=== PATIENT | female | born 2000 | race African-American/Black ===

== ENCOUNTER 2025-03-02 21:06 | Inpatient (IN) | payer MEDICAID, OTHER ==
[2025-03-02] MEDS ORDERED: MAG HYDROX/AL HYDROX/SIMETH 355 ML BOTTLE PO PRN (22:38)
[2025-03-02] MEDS ORDERED: ACETAMINOPHEN TAB 325 MG TAB PO PRN (22:38)
[2025-03-02] MEDS ORDERED: IBUPROFEN 600 MG TAB PO PRN (22:38)
[2025-03-02] MEDS ORDERED: haloperidoL 5 MG TAB PO PRN (22:38)
[2025-03-02] MEDS ORDERED: LORazepam 1 MG/0.5 ML VIAL IM PRN (22:38)
[2025-03-02] MEDS ORDERED: MAGNESIUM HYDROXIDE 2,400 MG/30 ML CUP PO PRN (22:38)
[2025-03-02] MEDS ORDERED: HALOPERIDOL LACTATE 5 MG/ML 1 ML VIAL IM PRN (22:38)
[2025-03-02] MEDS ORDERED: LORazepam 2 MG/ML INJ IM PRN (22:55)
[2025-03-03] MEDS: diphenhydrAMINE 50 MG CAP PO PRN (00:14)
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
[2025-03-03] MEDS ORDERED: ALBUTEROL INHALER 60 PUFF/8 GM INHALER (MHU) INHALATION PRN (09:55)
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
[2025-03-03] MEDS: LORazepam 1 MG TAB PO PRN (10:43)
[2025-03-03] MEDS: ESCITALOPRAM 5 MG TAB PO SCH (10:43)
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
[2025-03-03 16:13] LABS: Chol/HDL Ratio 2.82 Ratio; VLDL Calculation 13.66 mg/dL (5.00-40.00)
[2025-03-03] MEDS: PETROLAT,WHITE/LAN/8-HYDROXYQU 227 GM OINT TOPICAL PRN (21:37)
--- NOTE | 2025-03-04 15:01 | P.PN ---
Subjective Progress Note Date: 03/04/25 Principal diagnosis: Major depression Probable ADHD possible bipolar Patient was seen in the [facility] and she came readily she was wearing a blanket over her head because she felt cold she said she was here because she was depressed but that in the past she was diagnosed with ADHD and think she does have that but she kind of likes it. "ADHD is my superpower" she was treated briefly for that but did not like the fact that it made her more depressed. She says she slept well last night and that yesterday the Lexapro bothers her stomach but today it is not. MENTAL STATUS EXAM: General Appearance: Patient appears to be stated age is alert, directable, and attempts to cooperate. Patient appears to have poor hygiene and grooming. Behavior: Patient is seated without any agitated behavior. She did become upset towards the end of interview, irritable and tearful. Minimizing her symptoms Speech: Patient's speech is fluent and nonpressured. Mood/Affect: Patient reports their mood is depressed, affect is congruent and labile Suicidality/Homicidality: Patient denies having any homicidal ideation intent or plan. Denies any suicidal ideations intent or plan Perceptions: Patient denies any visual hallucinations and denies any auditory hallucinations Though content/process: There is no evidence of any delusional thought content and thought process is linear and goal-directed. Memory and concentration: AOX3, grossly intact for the purposes of this session. Can spell "WORLD" backwards Judgment and insight: Poor STRENGTHS/WEAKNESSES: strength is that patient is resilient, goal oriented. Weakness is that patient has poor judgment/insight and is impulsive INTELLECT: Average IMPRESSIONS: Depression, unspecified Rule out MDD versus bipolar disorder, current episode depressed Social anxiety disorder Cannabis use disorder Rule out PTSD PLAN: -Patient is admitted under voluntary status to [facility] for stabilization of psychiatric symptoms and safety. Patient has signed adult voluntary form and and is placed in patient's chart. -Medications : Start Lexapro 5 mg daily for depression - Ativan and Haldol PRN for agitation/aggression -Patient was counselled on substance abuse and desired to cut back on use -Patient was informed of the risks, benefits and side effects of the medication and patient verbally consented to taking the medications. Patient signed med consent form and was placed in chart. Patient offered and accepted patient education sheet for psychotropic medications. -Internal Medicine consult to perform medical evaluation and physical. -NRT -not needed as patient does not smoke -SW on board for discharge planning. Encourage patient to participate in groups to work on coping skills. Anticipate discharge early next week Objective - Vital Signs Vital signs: Vital Signs Temp 93.2 F L 03/03/25 21:00 Pulse 108 H 03/04/25 09:29 Resp 18 03/04/25 09:29 BP 113/68 03/04/25 09:29 Pulse Ox 98 03/04/25 09:29 FiO2 - Labs Labs: Abnormal Lab Results - Last 24 Hours (Table) 03/03/25 Range/Units 06:30 HDL Cholesterol 66.30 H (40.00-60.00) mg/dL
--- NOTE | 2025-03-05 09:14 | P.PN ---
Subjective Progress Note Date: 03/05/25 Principal diagnosis: Major depression Probable ADHD possible bipolar Patient was seen in the [facility] and she came readily she was wearing a blanket over her head because she felt cold she said she was here because she was depressed but that in the past she was diagnosed with ADHD and think she does have that but she, "kind of likes it." "ADHD is my superpower" she was treated briefly for the ADHD. She says she slept well last night and that yesterday the Lexapro bothered her stomach but today it is not. MENTAL STATUS EXAM: General Appearance: Patient appears to be stated age is alert, directable, and attempts to cooperate. Patient appears to have poor hygiene and grooming. Behavior: Patient is seated without any agitated behavior. She seems more to need for help. Speech: Patient's speech is fluent and nonpressured. Mood/Affect: Patient reports their mood is depressed, affect is congruent and less labile Suicidality/Homicidality: Patient denies having any homicidal ideation intent or plan. Denies any suicidal ideations intent or plan Perceptions: Patient denies any visual hallucinations and denies any auditory hallucinations Though content/process: There is no evidence of any delusional thought content and thought process is linear and goal-directed. Memory and concentration: AOX3, grossly intact for the purposes of this session. Can spell "WORLD" backwards Judgment and insight: Poor STRENGTHS/WEAKNESSES: strength is that patient is resilient, goal oriented. Weakness is that patient has poor judgment/insight and is impulsive INTELLECT: Average IMPRESSIONS: Depression, unspecified Rule out MDD versus bipolar disorder, current episode depressed Social anxiety disorder Cannabis use disorder Rule out PTSD PLAN: -Patient is admitted under voluntary status to [facility] for stabilization of psychiatric symptoms and safety. Patient has signed adult voluntary form and and is placed in patient's chart. -Medications : Increase Lexapro to 10 mg daily for depression - Ativan and Haldol PRN for agitation/aggression -Patient was counselled on substance abuse and desired to cut back on use -Patient was informed of the risks, benefits and side effects of the medication and patient verbally consented to taking the medications. Patient signed med consent form and was placed in chart. Patient offered and accepted patient education sheet for psychotropic medications. -Internal Medicine consult to perform medical evaluation and physical. -NRT -not needed as patient does not smoke -SW on board for discharge planning. Encourage patient to participate in groups to work on coping skills. Anticipate discharge early next week Objective - Vital Signs Vital signs: Vital Signs Temp 98.9 F 03/05/25 08:54 Pulse 102 H 03/05/25 08:54 Resp 16 03/05/25 08:54 BP 107/76 03/05/25 08:54 Pulse Ox 99 03/05/25 08:54 FiO2
[2025-03-06] MEDS: ESCITALOPRAM 10 MG TAB PO SCH (09:55)
[2025-03-06 11:40] VITALS: BP 119/83; PULSE 99; RESP 18; TEMP 98
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
== END 2025-03-06 14:50 | disposition home or self-care (01) | DRG 751 ==
LOC: 3MHU 22:37
PROVIDERS: ADMIT Psychiatry & Neurology Psychiatry; ATTEND Psychiatry & Neurology Psychiatry
DX: F32.9 Major depressive disorder, single episode, unspecified (principal); F40.10 Social phobia, unspecified; F12.10 Cannabis abuse, uncomplicated; R45.850 Homicidal ideations; R45.851 Suicidal ideations; G47.10 Hypersomnia, unspecified; T22.111A Burn of first degree of right forearm, initial encounter; J45.909 Unspecified asthma, uncomplicated; F90.9 Attention-deficit hyperactivity disorder, unspecified type; Z79.899 Other long term (current) drug therapy
CPT/HCPCS: 80061; 83036; 84443